=== PATIENT | female | born 1955 | race Caucasian/White ===

== ENCOUNTER 2023-02-17 13:12 | Outpatient (OUT) | payer MEDICARE, SELFPAY ==
--- NOTE | 2023-02-17 13:35 | XR_ITS ---
The [address] [address] Patient Name: STEF PERALTA MRN: [id number] date: 1955 Sex: F Assigned Patient Location: Current Patient Location: Accession/Order Number: [id number] Exam Date: 02/17/2023 13:33 Report Date: 02/17/2023 14:42 At the request of: EMMA SARKAR Procedure: XR ankle RT min 3V EXAM: XR ankle RT min 3V HISTORY: RIGHT ANKLE PAIN COMPARISON: 01/27/2023. TECHNIQUE: 3 views right ankle. FINDINGS/IMPRESSION: Recent right medial malleolar fracture is again with increased bony resorption and question slight interval increase in medial displacement of the distal fragment compared to prior. Close follow-up. Diffuse overlying soft tissues and and edema. Severe osteopenia with no interval new fracture seen. Severe degenerative change of the midfoot and prominent dorsal and plantar calcaneal enthesophytes. Electronically authenticated by: NOHEMI DESHPANDE Date: 02/17/2023 14:42
== END 2023-02-17 13:13 | disposition home or self-care (01) ==
LOC: WC 13:12
PROVIDERS: PCP Podiatrist Foot & Ankle Surgery; Visit Provider Podiatrist Foot & Ankle Surgery
DX: M25.571 Pain in right ankle and joints of right foot (principal)
CPT/HCPCS: 73610

== ENCOUNTER 2023-04-13 14:31 | Outpatient (OUT) | payer MEDICARE, SELFPAY ==
--- NOTE | 2023-04-13 | XR_ITS ---
The [address] [address] Patient Name: STEF PERALTA MRN: [id number] date: 1955 Sex: F Assigned Patient Location: [facility] Current Patient Location: Accession/Order Number: [id number] Exam Date: 04/13/2023 15:47 Report Date: 04/14/2023 08:57 At the request of: DOUGLAS MOTLEY Procedure: XR ankle RT min 3V PROCEDURE: XR ankle RT min 3V HISTORY: RIGHT ANKLE PAIN ; lateral right ankle pain ; medial malleolus fracture 01/11/2023 COMPARISON: XR ankle right 02/17/2023 FINDINGS: BONES:Increased density of the nondisplaced medial malleolus fracture and mild callus formation along the margins. Intact ankle mortise. Prominent degenerative enthesopathic spurring of the calcaneus. SOFT TISSUES:Marked atherosclerotic disease in extensive calcium deposition within the subcutaneous soft tissues. EFFUSION:None visible. OTHER: Negative. XR/XR ankle RT min 3V IMPRESSION: 1. Ongoing bone healing in normal alignment of the prior medial malleolus fracture. 2. No acute bone abnormality. 3. Stable degenerative changes. Electronically authenticated by: KEVAN WINSTON Date: 04/14/2023 08:57
== END 2023-04-13 14:32 | disposition home or self-care (01) ==
LOC: RAD 14:32
PROVIDERS: Visit Provider Physician Assistant
DX: M25.571 Pain in right ankle and joints of right foot (principal)
CPT/HCPCS: 73610

== ENCOUNTER 2023-05-25 10:19 | Outpatient (OUT) | payer MEDICARE, SELFPAY ==
--- NOTE | 2023-05-25 | XR_ITS ---
The [address] [address] Patient Name: STEF PERALTA MRN: [id number] date: 1955 Sex: F Assigned Patient Location: [facility] Current Patient Location: Accession/Order Number: [id number] Exam Date: 05/25/2023 10:50 Report Date: 05/26/2023 07:47 At the request of: DOUGLAS MOTLEY Procedure: XR ankle RT min 3V PROCEDURE: XR ankle RT min 3V COMPARISON: 04/13/2023 HISTORY: RIGHT ANKLE PAIN FINDINGS: BONES:Continued stable healing of a medial malleolus fracture with bony bridging. Stable degenerative changes with joint space narrowing marginal osteophyte formation and enthesopathic spurring of the calcaneus SOFT TISSUES:Extensive vascular calcifications and soft tissue calcifications EFFUSION:None visible. OTHER: Negative. XR/XR ankle RT min 3V IMPRESSION: Stable healing medial malleolus fracture Electronically authenticated by: WONG ADAIR Date: 05/26/2023 07:47
== END 2023-05-25 10:20 | disposition home or self-care (01) ==
LOC: RAD 10:28
PROVIDERS: Visit Provider Physician Assistant
DX: M25.571 Pain in right ankle and joints of right foot (principal)
CPT/HCPCS: 73610

== ENCOUNTER 2023-07-06 10:18 | Outpatient (OUT) | payer MEDICARE, SELFPAY ==
--- NOTE | 2023-07-06 | XR_ITS ---
The [place] [address] Patient Name: STEF PERALTA MRN: [id number] date: 1955 Sex: F Assigned Patient Location: [facility] Current Patient Location: [facility] Accession/Order Number: [id number] Exam Date: 07/06/2023 10:34 Report Date: 07/06/2023 15:50 At the request of: EMMA SARKAR Procedure: XR ankle RT min 3V PROCEDURE: XR ankle RT min 3V COMPARISON: 05/25/2023 HISTORY: RIGHT ANKLE PAIN FINDINGS: BONES:Again demonstrated is a healing stable fracture of the medial malleolus with slight interval increase in sclerosis/bone formation. No new fracture or dislocation. Moderate degenerative changes with joint space narrowing and marginal osteophyte formation. Moderate to severe enthesopathic spurring of the calcaneus SOFT TISSUES:Soft tissue swelling, calcification and vascular calcifications EFFUSION:None visible. OTHER: Negative. XR/XR ankle RT min 3V IMPRESSION: Moderate to severe degenerative changes Electronically authenticated by: WONG ADAIR Date: 07/06/2023 15:50
== END 2023-07-06 10:19 | disposition home or self-care (01) ==
LOC: RAD 10:18
PROVIDERS: Visit Provider Podiatrist Foot & Ankle Surgery
DX: M25.571 Pain in right ankle and joints of right foot (principal)
CPT/HCPCS: 73610